=== PATIENT | male | born 1930 | race Caucasian/White ===

== ENCOUNTER 2017-10-15 20:55 | Emergency (ER) | payer OTHER ==
[~2017-10-15] VITALS: Ht 172.7 cm; Wt 93.0 kg
[~2017-10-15 20:55] MED LIST: BAYER CHEWABLE81 MG PO; CRESTOR10 MG PO; DILTIAZEM 24HR180 M2 PO; FLECAINIDE ACET50 M1 PO; FLOMAX0.4 MG PO; NAPROSYN500 MG PO; NIACIN500 MG PO; NORCO 5-325 TA1 EACH PO; TOPROL XL25 MG PO; VITAMIN D1000 UNI1 PO; ZOFRAN4 MG PO
[2017-10-15 21:07] LABS: URINE BILIRUBIN NEGATIVE (Negative); URINE BLOOD 1+ (Negative); URINE CLARITY CLEAR; URINE COLOR YELLOW; URINE GLUCOSE-RANDOM* NEGATIVE (Negative); URINE KETONES NEGATIVE (Negative); URINE LEUKOCYTES-REFLEX NEGATIVE (Negative); URINE NITRITE-REFLEX NEGATIVE (Negative); URINE PROTEIN (DIPSTICK) 1+ (Negative); URINE UROBILINOGEN 0.2 E.U./dl (0.2-1.0)
[2017-10-15 21:15] LABS: BACTERIA-REFLEX 1-9 Few /HPF (None Seen); CASTS None Seen /LPF (None Seen); CRYSTALS None Seen /LPF (None Seen); SQUAMOUS None Seen /LPF (0-3); URINE RBC 3-10 Few /HPF (0-2); URINE WBC-REFLEX None Seen /HPF (0-5)
[2017-10-15] MEDS ORDERED: LASIX 40 MG TAB40 M2 PO (21:23)
[2017-10-15] MEDS ORDERED: LIPITOR10 MG PO (21:24)
[2017-10-15 21:50] LABS: HEMATOCRIT 32.8 % (42.0-52.0); RDW 13.9 % (10.5-14.5)
[2017-10-15 21:56] LABS: BASOPHILS 0.8 % (0.0-2.0); EOSINOPHILS 2.5 % (0.0-3.0); HEMOGLOBIN 11.4 gm/dL (14.0-18.0); LYMPHOCYTES 26.9 % (24.0-44.0); MCH 32.1 pg (26.0-34.0); MCHC 34.7 g/dL (28.0-37.0); MCV 92.6 fL (80.0-100.0); MONOCYTES 11.7 % (1.0-8.0); PLATELET COUNT 169 thou/uL (150-400); POLYS 58.1 % (36.0-66.0); RBC 3.54 mil/uL (4.50-6.00); WBC 6.9 thou/uL (4.0-11.0)
[2017-10-15 22:02] LABS: CALCIUM 8.8 mg/dL (8.5-10.1); CREATININE 2.9 mg/dL (0.7-1.3); POTASSIUM 3.7 mmol/L (3.5-5.1)
[2017-10-15 22:07] LABS: ALBUMIN 3.9 g/dL (3.4-5.0); TOTAL BILIRUBIN 0.5 mg/dL (<0.1-1.0); TOTAL PROTEIN 7.4 g/dL (6.4-8.2)
[2017-10-15] MEDS ORDERED: HYDROCODONE-AP1 EAC6 PO (22:42)
[2017-10-15 22:57] VITALS: BP 122/48
== END 2017-10-15 23:00 | disposition home or self-care (01) ==
LOC: ER 20:55
PROVIDERS: Nurse Practitioner Family
DX: R10.32 Left lower quadrant pain (principal); R31.9 Hematuria, unspecified; I10 Essential (primary) hypertension; Z87.442 Personal history of urinary calculi; Z85.46 Personal history of malignant neoplasm of prostate; Z91.030 Bee allergy status